=== PATIENT | female | born 1945 | race Caucasian/White ===

== ENCOUNTER → 2017-10-08 | Outpatient (CLI) | payer MEDICARE, OTHER ==
[~2017-10-08] MED LIST: AMOXICILLIN500 M1 PO; AUGMENTIN 875875 MG PO; BENTYL 10 MG CA10 M1; CEPACOL SORE T1 EAC7 MM; FLAGYL500 MG PO; HYDROCODON-ACE1 EAC7 PO; IRON325 PO; KEFLEX500 M1 PO; LEVAQUIN 750 M750 MG PO; MACROBID 100 M100 M1 PO; MELATONIN3 MG PO; NORCO 5-325 TA1 EACH PO; NORVASC10 MG PO; PREDNISONE 10 M10 MG PO; PRILOSEC 20 MG20 MG PO; PRINIVIL20 MG PO; TESSALON PERLE100 MG PO; VITAMIN D 5050000 I1 PO; ZOFRAN4 MG PO
== END ==
LOC: M.RAD 11:03
DX: Z12.31 Encounter for screening mammogram for malignant neoplasm of breast (principal); I10 Essential (primary) hypertension

== ENCOUNTER 2018-01-25 19:58 | Emergency (ER) | payer MEDICARE, OTHER ==
[~2018-01-25] VITALS: Ht 142.2 cm; Wt 49.0 kg
[~2018-01-25 19:58] MED LIST changes: -BENTYL 10 MG CA10 M1; -KEFLEX500 M1 PO
[2018-01-25] MEDS ORDERED: BENTYL 10 MG CA10 M1 (20:10)
[2018-01-25 20:37] LABS: ABSOLUTE BASOPHILS 0.1 thou/uL (0.0-0.2); ABSOLUTE EOSINOPHILS 0.2 thou/uL (0.0-0.7); ABSOLUTE LYMPHOCYTES 2.8 thou/uL (0.8-5.3); ABSOLUTE NEUTROPHILS 5.3 thou/uL (1.6-8.1); BASOPHILS 0.6 %; EOSINOPHILS 2.3 %; HEMATOCRIT 38.8 % (37.0-47.0); HEMOGLOBIN 12.2 gm/dL (12.0-15.0); LYMPHOCYTES 30.2 %; MCH 23.2 pg (26.0-34.0); MCHC 31.5 g/dL (28.0-37.0); MCV 73.6 fL (80.0-100.0); MONOCYTES 10.1 %; MPV 8.2 fl. (7.2-11.1); NUCLEATED RBCS 0 /100WBC; PLATELET COUNT* 255 thou/uL (150-400); POLYS 56.8 %; RBC 5.27 mil/uL (4.20-5.00); RDW-CV 15.6 % (10.5-14.5); WBC 9.4 thou/uL (4.0-11.0)
[2018-01-25 21:03] LABS: ANION GAP 8 mmol/L (7-16); BUN 14 mg/dL (7-18); CALCIUM 8.6 mg/dL (8.5-10.1); CHLORIDE 105 mmol/L (98-107); CO2 26 mmol/L (21-32); CREATININE 0.7 mg/dL (0.6-1.3); GLUCOSE 106 mg/dL (70-99); POTASSIUM 3.6 mmol/L (3.5-5.1); SODIUM 139 mmol/L (136-145)
[2018-01-25 21:10] LABS: ALBUMIN 3.6 g/dL (3.4-5.0); ALKALINE PHOSPHATASE 129 U/L (46-116); SGOT 20 U/L (15-37); SGPT 20 U/L (30-65); TOTAL BILIRUBIN 0.2 mg/dL (<0.1-1.0); TOTAL PROTEIN 7.6 g/dL (6.4-8.2); TROPONIN-I LEVEL <0.06 ng/mL (<0.06)
[2018-01-25 22:04] LABS: URINE BILIRUBIN NEGATIVE (Negative); URINE BLOOD NEGATIVE (Negative); URINE CLARITY CLEAR; URINE COLOR YELLOW; URINE GLUCOSE-RANDOM NEGATIVE (Negative); URINE KETONES NEGATIVE (Negative); URINE LEUKOCYTES 1+ (Negative); URINE NITRITE NEGATIVE (Negative); URINE PROTEIN NEGATIVE (Negative); URINE UROBILINOGEN 0.2 E.U./dl (0.2-1.0)
[2018-01-25] MEDS ORDERED: KEFLEX500 M1 PO (22:11)
[2018-01-25 22:24] VITALS: BP 132/85
[2018-01-25 22:26] LABS: BACTERIA 1-9 Few /HPF (None Seen); CASTS None Seen /LPF (None Seen); CRYSTALS None Seen /LPF (None Seen); SQUAMOUS 4-10 Moderate /LPF (0-3); URINE RBC 3-10 Few /HPF (0-2); URINE WBC 6-15 Few /HPF (0-5)
--- NOTE | 2018-01-26 17:04 | EKG ---
[place] [address] ELECTROCARDIOGRAM REPORT Name: JOMAR BANEGAS Room: [facility]#: [id number] Admission: 01/25/18 Attend Phys: Discharge: 01/25/18 Date of : 47 Report #: [id number] THIS REPORT FOR: //name// [facility] ED Test Date: 2018-01-25 Test Time: 20:13:20 Pat Name: JOMAR BANEGAS Department: Room: Gender: [place]: [place] : 1945 Requested By: Blanca Earl Order Number: [id number] MD: Marquis Valenzuela Measurements Intervals [place] Rate: 93 P: 35 [place]: 146 QRS: 2 QRSD: 85 T: 14 QT: 377 QTc: 469 Interpretive Statements Sinus rhythm Abnormal R-wave progression, early transition Compared to ECG 10/09/2016 19:42:04 Sinus tachycardia no longer present Electronically Signed On 01-26-2018 17:04:34 CDT by Marquis Valenzuela [email or web address] <ELECTRONICALLY SIGNED> By: Marquis Valenzuela MD, [facility] 01/26/18 1704 12 12 Marquis Valenzuela MD, FACC /EPI
== END 2018-01-25 22:24 | disposition home or self-care (01) ==
LOC: M.ERS 19:58
PROVIDERS: Nurse Practitioner Family
DX: I10 Essential (primary) hypertension (principal); N39.0 Urinary tract infection, site not specified; R20.0 Anesthesia of skin; R20.2 Paresthesia of skin; K21.9 Gastro-esophageal reflux disease without esophagitis; Z86.2 Personal history of diseases of the blood and blood-forming organs and certain disorders involving the immune mechanism; Z90.49 Acquired absence of other specified parts of digestive tract

== ENCOUNTER → 2018-10-16 | Outpatient (CLI) | payer MEDICARE, OTHER ==
[~2018-10-16] MED LIST changes: +BENTYL 10 MG CA10 M1; +KEFLEX500 M1 PO
== END ==
LOC: M.RAD 11:23
DX: Z12.31 Encounter for screening mammogram for malignant neoplasm of breast (principal); M81.0 Age-related osteoporosis without current pathological fracture

== ENCOUNTER → 2019-10-19 | Outpatient (CLI) | payer MEDICARE, OTHER | LOC: M.RAD 09:17 | PROVIDERS: ATTEND Family Medicine | DX: Z12.31 Encounter for screening mammogram for malignant neoplasm of breast (principal); M81.0 Age-related osteoporosis without current pathological fracture ==

== ENCOUNTER → 2020-11-17 | Outpatient (CLI) | payer MEDICARE, OTHER | LOC: M.RAD 11:02 | PROVIDERS: ATTEND Family Medicine | DX: Z12.31 Encounter for screening mammogram for malignant neoplasm of breast (principal) ==

== ENCOUNTER → 2021-02-27 | Outpatient (CLI) | payer MEDICARE, OTHER ==
[2021-02-27 12:28] LABS: ABSOLUTE BASOPHILS 0.1 thou/uL (0.0-0.2); ABSOLUTE EOSINOPHILS 0.2 thou/uL (0.0-0.7); ABSOLUTE LYMPHOCYTES 2.7 thou/uL (0.8-5.3); ABSOLUTE MONOCYTES 0.8 thou/uL (0.0-1.2); ABSOLUTE NEUTROPHILS 5.4 thou/uL (1.6-8.1); BASOPHILS 0.6 %; EOSINOPHILS 1.9 %; HEMATOCRIT 42.8 % (37.0-47.0); HEMOGLOBIN 13.7 gm/dL (12.0-15.0); LYMPHOCYTES 29.5 %; MCH 23.7 pg (26.0-34.0); MCV 73.9 fL (80.0-100.0); MPV 8.3 fl. (7.2-11.1); NUCLEATED RBCS 0 /100WBC; PLATELET COUNT* 265 thou/uL (150-400); RBC 5.79 mil/uL (4.20-5.00); RDW-CV 14.9 % (10.5-14.5); WBC 9.2 thou/uL (4.0-11.0)
[2021-02-27 12:49] LABS: ALBUMIN 4.2 g/dL (3.4-5.0); ALKALINE PHOSPHATASE 129 U/L (46-116); ANION GAP 11 mmol/L (7-16); BUN 21 mg/dL (7-18); CALCIUM 9.6 mg/dL (8.5-10.1); CHLORIDE 101 mmol/L (98-107); CHOLESTEROL 221 mg/dL (<200); CO2 27 mmol/L (21-32); GLUCOSE 97 mg/dL (70-99); HDL CHOLESTEROL 60 mg/dL (>40); LDL CHOLESTEROL 146 mg/dL (<100); POTASSIUM 4.1 mmol/L (3.5-5.1); SGOT 20 U/L (15-37); SGPT 29 U/L (30-65); SODIUM 139 mmol/L (136-145); TC:HDL 3.7 Ratio (Not establshd); TOTAL BILIRUBIN 0.5 mg/dL (<0.1-1.0); TOTAL PROTEIN 8.9 g/dL (6.4-8.2); TRIGLYCERIDE 76 mg/dL (<150); VLDL 15 mg/dL (<40)
[2021-02-27 13:06] LABS: SERUM ASSESSMENT Clear
== END ==
LOC: M.CT 11:00
PROVIDERS: ATTEND Family Medicine
DX: Z00.00 Encounter for general adult medical examination without abnormal findings (principal); Z23 Encounter for immunization; M85.88 Other specified disorders of bone density and structure, other site; K44.9 Diaphragmatic hernia without obstruction or gangrene; M81.0 Age-related osteoporosis without current pathological fracture; M43.17 Spondylolisthesis, lumbosacral region; M48.07 Spinal stenosis, lumbosacral region; I70.0 Atherosclerosis of aorta; R91.8 Other nonspecific abnormal finding of lung field; E78.00 Pure hypercholesterolemia, unspecified; R35.0 Frequency of micturition; I10 Essential (primary) hypertension; Z90.49 Acquired absence of other specified parts of digestive tract

== ENCOUNTER → 2021-03-03 | Outpatient (CLI) | payer MEDICARE, OTHER | LOC: M.ULTRA 10:05 | PROVIDERS: ATTEND Family Medicine | DX: I70.8 Atherosclerosis of other arteries (principal) ==